=== PATIENT | male | born 1945 | race Caucasian/White ===

== ENCOUNTER 2018-11-15 09:21 | Day surgery (SDC) | payer MEDICARE, BC ==
[~2018-11-15 09:21] MED LIST: ASPI81CH; FA-80.8 MG; GLIM4; METF500; METTREX2.5; PRED1; Sudogest60 MG
--- NOTE | 2018-11-15 12:52 | NUR ---
TEMP 99.5-100.3 CALLED TO [facility]. PT HAS DC INSTRUCTIONS WITH HIM. WILL BE DC'D FROM RADIOLOGY IF US RESULTS INTERPRETED RIGHT AWAY OTHERWISE PT TO RETURN TO [facility] TO WAIT FOR RAD READ.
--- NOTE | 2018-11-15 12:58 | NUR ---
PT TO RAD FOR CT, NOT US.
--- NOTE | 2018-11-15 13:21 | NUR ---
PT IS DISCHARGED FROM RADIOLOGY AFTER CT SCAN COMPLETED.
== END 2018-11-15 22:41 | disposition home or self-care (01) ==
LOC: CT 09:21
DX: C64.1 Malignant neoplasm of right kidney, except renal pelvis (principal)
CPT/HCPCS: 50200; 77012; 88305; 88341; 88342

== ENCOUNTER 2018-11-17 10:41 | Inpatient (IN) | payer MEDICARE, BC ==
[~2018-11-17] VITALS: Ht 172.7 cm; Wt 79.0 kg
[2018-11-17 11:31] LABS: BASOPHILS ABSOLUTE AUTO 0.03 K/mm3 (0.00-0.23); BASOPHILS PERCENT AUTO 0 % (0-2); EOSINOPHILS PERCENT AUTO 0 % (0-6); Hematocrit 54.2 % (37.0-53.0); Hemoglobin 17.2 g/dL (13.5-17.5); IMMATURE GRAN ABSOLUTE AUTO 0.03 K/mm3 (0.00-0.10); IMMATURE GRAN PERCENT AUTO 0 % (0-1); LYMPHOCYTES ABSOLUTE AUTO 1.06 K/mm3 (0.84-5.20); LYMPHOCYTES PERCENT AUTO 14 % (21-46); MONOCYTES ABSOLUTE AUTO 0.76 K/mm3 (0.16-1.47); MONOCYTES PERCENT AUTO 10 % (4-13); Mean Corpuscular HGB 26.9 pg (26.0-34.0); Mean Corpuscular HGB Conc 31.7 g/dL (31.5-36.5); Mean Corpuscular Volume 85 fL (80-100); Mean Platelet Volume 9.2 fL (9.1-12.4); NEUTROPHILS ABSOLUTE AUTO 5.96 K/mm3 (1.96-9.15); NEUTROPHILS PERCENT AUTO 76 % (41-73); Platelet Count 211 K/mm3 (150-400); RDW Coefficient Variation 12.8 % (11.7-14.2); RDW Standard Deviation 39.8 fL (35.1-46.3); White Blood Cell Count 7.84 K/mm3 (4.00-11.30)
[2018-11-17 11:51] LABS: Alanine Aminotransfer (ALT/SGP 31 U/L (12-78); Albumin, Blood 2.9 g/dL (3.4-5.0); Albumin/Globulin Ratio 0.6 (0.8-1.8); Alk Phos 161 U/L (50-136); Anion Gap 8 mmol/L (6-16); Aspartate Aminotrans (AST/SGOT 40 U/L (12-37); Blood Urea Nitrogen 16 mg/dL (8-24); Bun/Creatinine Ratio 17.5 (12.0-20.0); CO2, Blood 27 mmol/L (21-32); Calcium, Blood 8.1 mg/dL (8.5-10.1); Chloride, Blood 95 mmol/L (98-108); Creatinine, Blood 0.92 mg/dL (0.60-1.20); Globulin, Blood 4.9 g/dL (2.2-4.0); Glomerular Filtration Rate >60 (60-); Glucose, Blood 151 mg/dL (70-99); Potassium, Blood 4.3 mmol/L (3.5-5.5); Sodium, Blood 130 mmol/L (136-145); Total Protein, Blood 7.8 g/dL (6.4-8.2)
[2018-11-17] MEDS ORDERED: SENN187 (15:01)
[2018-11-17] MEDS ORDERED: VOTRIENT200 MG PO (15:01)
[2018-11-17] MEDS ORDERED: METF500C PO (15:01)
[2018-11-17] MEDS ORDERED: OXYC10TA19 PO (15:02)
[2018-11-17] MEDS ORDERED: ZOLM5 PO (15:02)
[2018-11-17] MEDS ORDERED: MIRT15 PO (20:45)
--- NOTE | 2018-11-17 22:35 | NUR ---
ADMISSION: REPORT RECIEVED FROM ED RN. PT TO UNIT AT 2022. UPON ASSESSMENT PT IS IN NO VISABLE DISTRESS, A/O, SOMEWHAT SLEEPY BUT ANSWERS QUESTIONS AND ABLE TO HOLD CONVERSATION. VSS, PT REPORTS GENERALIZED WEAKNESS AND PAIN. WILL POSITION FOR COMFORT AND MED PER EMAR. ADMISSION ASSESSMENT AND CHARTING COMPLETED PT VERBALIZED UNDERSTANDING. BED ALARM ON FOR SAFETY. PT FAMILY MEMBERS CONTACT INFO ON BOARD.WILL CTM PT STATUS.
[2018-11-18 03:10] LABS: Source, Urine Clean Catch
[2018-11-18 03:11] LABS: Bilirubin, Urine Neg (Neg); Blood, Urine 3+ (Neg); Glucose Qualitative, Urine Neg (Neg); Ketones, Urine 3+ (Neg); Leukocyte Esterase, Urine 1+ (Neg); Nitrite, Urine Neg (Neg); Protein, Urine 1+ (Neg); Specific Gravity, Urine 1.015 (1.003-1.022); Urobilinogen, Urine 3+ (Normal)
[2018-11-18 03:16] LABS: Appearance, Urine Clear (Clear); Color, Urine Amber (P-Yellow)
[2018-11-18 03:42] LABS: Amorphous Light ({null, 0-Heavy}); Bacteria Few /hpf; Squamous Epithelial Cells Few /hpf (Few)
--- NOTE | 2018-11-18 06:23 | NUR ---
SUMMARY: PT HAS SLEPT OFF AND ON THIS SHIFT, ATTEMPTING TO MANAGE PAIN. PT REPORTS DILAUDID NO VERY EFFECTIVE. DR. WATSON NOTIFIED AND MORPHINE GIVEN. PT MOVED TO CHAIR THIS AM TO TRY AND BE MORE COMFORTABLE. PT REPORTS PAIN IN L SHOULDER AND GENERALIZED. VSS AND HAS VOIDED STANDING AT BEDSIDE WITH 2 ASSIST, HAS TROUBLE MOVING R LEG AND CANNOT MOVE L ARM WITHOUT EXTREME PAIN. PT A/0, FOLLOWING DIRECTIONS. BED ALARM/TAB ALARM ON FOR SAFETY. WILL CTM AND MANAGE PT PAIN. NO ACUTE CONCERNS AT THIS TIME.
--- NOTE | 2018-11-18 18:37 | NUR ---
SHIFT SUMMARY PT AXO, PLEASANT AND COOPERATIVE CARE THOUGH SLOW TO RESPOND AT TIMES. PT MEDICATED FOR PAIN PER EMAR. PT IS EXTREMELY PAINFUL WITH ANY MOVEMENT OF UPPER LEFT AND LOWER RIGHT EXTREMITY. THOUGH PT IS ABLE TO REST COMFORTABLY WHEN NOT MOVING. PT EXTREMELY PROTECTIVE OF AFFECTED EXTREMITIES. VSS. UP WITH 2 ASSIST AND FWW AND GB. FAMILY PRESENT THROUGHOUT THE SHIFT. HOME MEDICATION LABELED IN PHARMACY AND NOW IS IN LOCKED PT DRAWER. IV PATENT AND SALINE LOCKED.
--- NOTE | 2018-11-19 06:44 | NUR ---
SUMMARY: NO ACUTE CHANGE THIS SHIFT.VSS PT PAIN WELL MANAGED WITH SCHEDULED OXYCOTIN AND 2MG PO DILAUDID AT ABOUT 0100. PT ABLE TO SLEEP AND SEEMED MUCH MORE COMFORTABLE AND LESS PAINFULL THAN NIGHT OF 11/18. PT UP TO VOID WITH 2 ASSIST, NO SAFETY CONCERNS AT THIS TIME.
--- NOTE | 2018-11-19 11:45 | NUR ---
therapy: pt in room to eval and treat patient. pain at manageable level at this time per pt.
--- NOTE | 2018-11-19 18:46 | NUR ---
PT HAS BEEN STABLE THIS SHIFT. PT WORKED WELL WITH THERAPY AND HAS BEEN MOBILIZING OOB WITH 1 PERSON. PT PAIN CONTROL REGIMINE HAS BEEN REPORTED EFFECTIVE BY PATIENT, ALTHOUGH HE NEVER RATES HIS PAIN LOWER THAN 8/10. PT CONT TO HAVE DECREASED MOBILITY IN LEFT SHOULDER. PT USES LAUREN WALKER WELL. CONT BIOX ON FOR HIGH RISK PAIN. PT BRADYCARDIC AT TIMES IN THE HIGH 40'S-LOW 50'S, NON SYMPTOMATIC. P IRVIN DIET WELL. BLOOD SUGARS CONSISTENTLY UNDER 200, NO COVERAGE NEEDED. SOLUMEDROL CHANGED TO PREDNISONE. PLAN DC HOME WITHIN THE NEXT COUPLE OF DAYS PER HOSPITALIST. PT FAMILY AT BEDSIDE, ATTENTIVE. USES CALL LIGHT APPROPRIATELY NEEDED.
--- NOTE | 2018-11-20 07:34 | NUR ---
SUMMARY: NO CHANGE TONIGHT. PT CONTINUES TO BE BRADYCARDIC AND ASYMPTOMATIC. ALL OTHER VSS. A/O USING CALL LIGHT. PAIN IS UNDER CONTROL WITH SCHDULED OXYCOTIN AND PO MORPHINE FOR BREAK THROUGH. PT IS UP WITH 1 ASSIST. MOVING A LOT BETTER THAT HE WAS A ADMIT AND NOT WEAK. NO ACUTE SAFETY CONCERNS AT THIS TIME.
--- NOTE | 2018-11-20 09:35 | NUR ---
dr amin in to see pt.
--- NOTE | 2018-11-20 13:42 | NUR ---
pt resting in position of comfort. will cont to monitor.
--- NOTE | 2018-11-20 16:27 | NUR ---
CALLED DR BETH KIMBALL' OFFICE PER PT REQUEST REGARDING CONSULT DR KIMBALL' OFFICE STATED CONSULT NOT NEEDED, WILL SEE PT AT SCHEDULED APPOINTMENT ON .
--- NOTE | 2018-11-20 17:19 | NUR ---
SUMMARY NO ACUTE CHANGES T/O SHIFT. MEDICATED PER ORDERS FOR PAIN. PT RATED PAIN 7-8 T/O DAY. PROVIDED K PAD FOR COMFORT TO R HIP. PT REPORTS K PAD HAS PROVIDED SOME RELIEF. PT PLEASANT AND COOPERATIVE. SPOUSE AT BEDSIDE.
--- NOTE | 2018-11-21 05:29 | NUR ---
PT VSS T/O NIGHT. PT REP PAIN BETTER CONTROLLED W/CURRENT ORDERS. PT DID REQUIRE PO DILUADID APPX Q5HRS DURING NIGHT. PT HAD 1 BM THIS SHIFT. PT UP OOB W/LAUREN WALKER AND SBA, IRVIN ACTIVITY WELL, DOES NEED SOME ASSISTANCE LIFTING LEGS BACK INTO BED. PT REP HAVING SLEPT WELL DURING NIGHT, IS USING CALL LIGHT FOR ASSISTANCE, WILL CONT TO MONITOR UNTIL REP GIVEN TO ONCOMING RN.
[2018-11-21] MEDS ORDERED: DOCU100 PO (09:33)
[2018-11-21] MEDS ORDERED: TUMS300 MG PO (09:33)
[2018-11-21] MEDS ORDERED: SENN187 PO (09:33)
[2018-11-21] MEDS ORDERED: MIRALAX17 GM PO (09:34)
[2018-11-21] MEDS ORDERED: PANT20 PO (09:34)
[2018-11-21] MEDS ORDERED: HYDMOR2 PO (09:34)
[2018-11-21] MEDS ORDERED: OXYC30ER PO (09:35)
--- NOTE | 2018-11-21 10:54 | NUR ---
DISCHARGED REVIEWED DC PAPERWORK W/PT AND . VERBALIZED UNDERSTANDING. DC'D IV, CATHETER INTACT. PT LEFT UNIT IN WC, ACCOMPANIED BY WHO HAD POSSESSIONS AND DC PAPERWORK IN HAND.
== END 2018-11-21 11:00 | disposition home or self-care (01) | DRG 687 ==
LOC: ER 10:41 → MEDS 10:42 → SURS 20:20
PROVIDERS: Physician Assistant; ADMIT Internal Medicine
DX: C64.9 Malignant neoplasm of unspecified kidney, except renal pelvis (principal); C79.51 Secondary malignant neoplasm of bone; E87.1 Hypo-osmolality and hyponatremia; E87.8 Other disorders of electrolyte and fluid balance, not elsewhere classified; K21.9 Gastro-esophageal reflux disease without esophagitis; G43.909 Migraine, unspecified, not intractable, without status migrainosus; G44.89 Other headache syndrome; E11.9 Type 2 diabetes mellitus without complications; K59.00 Constipation, unspecified; Z79.84 Long term (current) use of oral hypoglycemic drugs; Z79.899 Other long term (current) drug therapy
CPT/HCPCS: 36415; 74022; 80053; 81001; 82947; 84550; 85025; 87086; 94762; 96361; 96372; 96374; 96375; 96376; 97116; 97162; 99284-25; G0378; J1170; J1650; J1885; J2270; J2920; J7030

== ENCOUNTER 2018-12-25 18:26 | Emergency (ER) | payer MEDICARE, BC ==
[~2018-12-25] VITALS: Ht 172.7 cm; Wt 74.8 kg
[~2018-12-25 18:26] MED LIST changes: +DOCU100 PO; +HYDMOR2 PO; +METF500C PO; +MIRALAX17 GM PO; +MIRT15 PO; +OXYC10TA19 PO; +OXYC30ER PO; +PANT20 PO; +SENN187; +SENN187 PO; +TUMS300 MG PO; +VOTRIENT200 MG PO; +ZOLM5 PO
[2018-12-25 20:31] LABS: Source, Urine Clean Catch
[2018-12-25 20:32] LABS: BASOPHILS ABSOLUTE AUTO 0.03 K/mm3 (0.00-0.23); BASOPHILS PERCENT AUTO 1 % (0-2); EOSINOPHILS ABSOLUTE AUTO 0.22 K/mm3 (0.00-0.68); EOSINOPHILS PERCENT AUTO 3 % (0-6); Hematocrit 53.3 % (37.0-53.0); Hemoglobin 16.9 g/dL (13.5-17.5); IMMATURE GRAN ABSOLUTE AUTO 0.03 K/mm3 (0.00-0.10); IMMATURE GRAN PERCENT AUTO 1 % (0-1); LYMPHOCYTES ABSOLUTE AUTO 1.57 K/mm3 (0.84-5.20); LYMPHOCYTES PERCENT AUTO 24 % (21-46); MONOCYTES ABSOLUTE AUTO 0.73 K/mm3 (0.16-1.47); MONOCYTES PERCENT AUTO 11 % (4-13); Mean Corpuscular HGB Conc 31.7 g/dL (31.5-36.5); Mean Corpuscular Volume 85 fL (80-100); Mean Platelet Volume 9.1 fL (9.1-12.4); NEUTROPHILS ABSOLUTE AUTO 4.06 K/mm3 (1.96-9.15); NEUTROPHILS PERCENT AUTO 61 % (41-73); Platelet Count 209 K/mm3 (150-400); RDW Coefficient Variation 18.9 % (11.7-14.2); RDW Standard Deviation 54.6 fL (35.1-46.3); Red Blood Cell Count 6.26 M/mm3 (4.30-5.90); White Blood Cell Count 6.64 K/mm3 (4.00-11.30)
[2018-12-25 20:33] LABS: Appearance, Urine Clear (Clear); Blood, Urine 3+ (Neg); Color, Urine Amber (P-Yellow); Glucose Qualitative, Urine Neg (Neg); Ketones, Urine Neg (Neg); Leukocyte Esterase, Urine 1+ (Neg); Nitrite, Urine Neg (Neg); Protein, Urine 2+ (Neg); Urobilinogen, Urine 3+ (Normal)
[2018-12-25 20:37] LABS: Bilirubin, Urine 1+ (Neg)
[2018-12-25 20:39] LABS: Bacteria Mod /hpf; Red Blood Cells, Urine 0-2 /hpf (0-2); Spermatozoa Rare /hpf; Squamous Epithelial Cells Not Seen /hpf (Few)
[2018-12-25] MEDS ORDERED: ASPI81CH PO (20:52)
[2018-12-25] MEDS ORDERED: Fentanyl1 EACH TD (20:54)
[2018-12-25 20:55] LABS: Alanine Aminotransfer (ALT/SGP 331 U/L (12-78); Albumin, Blood 2.9 g/dL (3.4-5.0); Albumin/Globulin Ratio 0.6 (0.8-1.8); Anion Gap 8 mmol/L (6-16); Aspartate Aminotrans (AST/SGOT 222 U/L (12-37); Bilirubin, Total 1.8 mg/dL (0.1-1.0); Blood Urea Nitrogen 15 mg/dL (8-24); Bun/Creatinine Ratio 16.3 (12.0-20.0); CO2, Blood 27 mmol/L (21-32); Calcium, Blood 8.9 mg/dL (8.5-10.1); Chloride, Blood 93 mmol/L (98-108); Creatinine, Blood 0.92 mg/dL (0.60-1.20); Globulin, Blood 5.2 g/dL (2.2-4.0); Glomerular Filtration Rate >60 (60-); Glucose, Blood 91 mg/dL (70-99); Potassium, Blood 4.6 mmol/L (3.5-5.5); Sodium, Blood 128 mmol/L (136-145); Total Protein, Blood 8.1 g/dL (6.4-8.2)
[2018-12-25] MEDS ORDERED: Flonase 0.05% N16 GM (20:55)
[2018-12-25] MEDS ORDERED: Prozac20 MG (20:55)
[2018-12-25 21:08] LABS: Alk Phos 1154 U/L (50-136)
[2018-12-25] MEDS ORDERED: Ativan0.5 MG PO (21:24)
== END 2018-12-25 22:10 | disposition home or self-care (01) ==
LOC: ER 18:26
PROVIDERS: Physician Assistant
DX: N13.30 Unspecified hydronephrosis (principal); C64.1 Malignant neoplasm of right kidney, except renal pelvis; C79.51 Secondary malignant neoplasm of bone; G47.00 Insomnia, unspecified; Z79.84 Long term (current) use of oral hypoglycemic drugs; Z79.899 Other long term (current) drug therapy; Z79.891 Long term (current) use of opiate analgesic; Z79.82 Long term (current) use of aspirin; Z87.891 Personal history of nicotine dependence
CPT/HCPCS: 36415; 72193; 74176; 80053; 81001; 83690; 85025; 87086; 99284-25; Q9967

== ENCOUNTER 2019-02-09 19:33 | Inpatient (IN) | payer MEDICARE, BC ==
[~2019-02-09] VITALS: Ht 172.7 cm; Wt 77.8 kg
[~2019-02-09 19:33] MED LIST changes: +ASPI81CH PO; +Ativan0.5 MG PO; +Fentanyl1 EACH TD; +Flonase 0.05% N16 GM; +Prozac20 MG
[2019-02-09 20:09] LABS: BASOPHILS ABSOLUTE AUTO 0.03 K/mm3 (0.00-0.23); BASOPHILS PERCENT AUTO 0 % (0-2); EOSINOPHILS ABSOLUTE AUTO 0.02 K/mm3 (0.00-0.68); EOSINOPHILS PERCENT AUTO 0 % (0-6); Hematocrit 41.7 % (37.0-53.0); Hemoglobin 13.6 g/dL (13.5-17.5); IMMATURE GRAN ABSOLUTE AUTO 0.02 K/mm3 (0.00-0.10); IMMATURE GRAN PERCENT AUTO 0 % (0-1); LYMPHOCYTES ABSOLUTE AUTO 1.52 K/mm3 (0.84-5.20); LYMPHOCYTES PERCENT AUTO 22 % (21-46); MONOCYTES PERCENT AUTO 13 % (4-13); Mean Corpuscular HGB 30.8 pg (26.0-34.0); Mean Corpuscular HGB Conc 32.6 g/dL (31.5-36.5); Mean Corpuscular Volume 94 fL (80-100); Mean Platelet Volume 8.9 fL (9.1-12.4); NEUTROPHILS ABSOLUTE AUTO 4.34 K/mm3 (1.96-9.15); NEUTROPHILS PERCENT AUTO 64 % (41-73); Platelet Count 220 K/mm3 (150-400); RDW Coefficient Variation 21.3 % (11.7-14.2); RDW Standard Deviation 71.9 fL (35.1-46.3); Red Blood Cell Count 4.42 M/mm3 (4.30-5.90); White Blood Cell Count 6.83 K/mm3 (4.00-11.30)
[2019-02-09 20:17] LABS: Alanine Aminotransfer (ALT/SGP 21 U/L (12-78); Albumin, Blood 2.7 g/dL (3.4-5.0); Albumin/Globulin Ratio 0.6 (0.8-1.8); Alk Phos 156 U/L (50-136); Anion Gap 7 mmol/L (6-16); Aspartate Aminotrans (AST/SGOT 22 U/L (12-37); Bilirubin, Total 1.4 mg/dL (0.1-1.0); Blood Urea Nitrogen 12 mg/dL (8-24); Bun/Creatinine Ratio 16.7 (12.0-20.0); CO2, Blood 27 mmol/L (21-32); Calcium, Blood 8.1 mg/dL (8.5-10.1); Chloride, Blood 99 mmol/L (98-108); Creatinine, Blood 0.72 mg/dL (0.60-1.20); Globulin, Blood 4.7 g/dL (2.2-4.0); Glomerular Filtration Rate >60 (60-); Glucose, Blood 150 mg/dL (70-99); Potassium, Blood 3.8 mmol/L (3.5-5.5); Sodium, Blood 133 mmol/L (136-145); Total Protein, Blood 7.4 g/dL (6.4-8.2)
[2019-02-09 21:58] LABS: Body Fluid Crystals NEG (NEGATIVE)
[2019-02-09 22:02] LABS: Glucose, Body Fluid 3 mg/dL; Protein, Body Fluid 4.4 g/dL
[2019-02-09 22:03] LABS: Source, Urine Clean Catch
[2019-02-09 22:18] LABS: Blood, Urine 1+ (Neg); Glucose Qualitative, Urine Neg (Neg); Ketones, Urine Neg (Neg); Leukocyte Esterase, Urine 1+ (Neg); Nitrite, Urine Neg (Neg); Protein, Urine 2+ (Neg); Urobilinogen, Urine 4+ (Normal)
[2019-02-09 22:18] LABS: WBC Count, Synovial Fluid 60630 /mm3 (0-180)
[2019-02-09 22:24] LABS: Appearance, Synovial Fluid Turbid (Clear); Color, Synovial Fluid Yellow (None-P Yel)
[2019-02-09 22:25] LABS: RBC Count, Synovial Fluid 116 /mm3 (0-0)
[2019-02-09 22:31] LABS: Lymphs, Synovial Fluid 2 % (0-15); Monocytes/Macrophages, Synovia 3 % (0-65); Neutrophils, Synovial Fluid 95 % (0-24)
[2019-02-09 22:38] LABS: Bilirubin, Urine 1+ (Neg)
[2019-02-09 22:39] LABS: Appearance, Urine Clear (Clear); Bacteria Few /hpf; Color, Urine Yellow (P-Yellow); Red Blood Cells, Urine 0-2 /hpf (0-2); Squamous Epithelial Cells Not Seen /hpf (Few); White Blood Cells, Urine 0-2 /hpf (0-5)
[2019-02-09 23:20] LABS: Influenza A Negative (NEGATIVE); Influenza B Negative (NEGATIVE)
[2019-02-10 04:16] LABS: BASOPHILS ABSOLUTE AUTO 0.01 K/mm3 (0.00-0.23); BASOPHILS PERCENT AUTO 0 % (0-2); EOSINOPHILS ABSOLUTE AUTO 0.01 K/mm3 (0.00-0.68); EOSINOPHILS PERCENT AUTO 0 % (0-6); Hematocrit 35.8 % (37.0-53.0); Hemoglobin 11.7 g/dL (13.5-17.5); IMMATURE GRAN ABSOLUTE AUTO 0.02 K/mm3 (0.00-0.10); IMMATURE GRAN PERCENT AUTO 0 % (0-1); LYMPHOCYTES ABSOLUTE AUTO 1.15 K/mm3 (0.84-5.20); LYMPHOCYTES PERCENT AUTO 19 % (21-46); MONOCYTES ABSOLUTE AUTO 0.94 K/mm3 (0.16-1.47); MONOCYTES PERCENT AUTO 15 % (4-13); Mean Corpuscular HGB 30.5 pg (26.0-34.0); Mean Corpuscular HGB Conc 32.7 g/dL (31.5-36.5); Mean Corpuscular Volume 93 fL (80-100); NEUTROPHILS ABSOLUTE AUTO 4.05 K/mm3 (1.96-9.15); NEUTROPHILS PERCENT AUTO 66 % (41-73); Platelet Count 179 K/mm3 (150-400); RDW Coefficient Variation 21.2 % (11.7-14.2); Red Blood Cell Count 3.84 M/mm3 (4.30-5.90); White Blood Cell Count 6.18 K/mm3 (4.00-11.30)
[2019-02-10 04:31] LABS: Anion Gap 8 mmol/L (6-16); Blood Urea Nitrogen 12 mg/dL (8-24); Bun/Creatinine Ratio 18.4 (12.0-20.0); CO2, Blood 24 mmol/L (21-32); Calcium, Blood 7.4 mg/dL (8.5-10.1); Chloride, Blood 102 mmol/L (98-108); Creatinine, Blood 0.65 mg/dL (0.60-1.20); Glomerular Filtration Rate >60 (60-); Glucose, Blood 123 mg/dL (70-99); Magnesium, Blood 1.8 mg/dL (1.6-2.4); Potassium, Blood 3.8 mmol/L (3.5-5.5); Sodium, Blood 134 mmol/L (136-145)
[2019-02-10 04:36] LABS: International Normalized Ratio 1.22; Prothrombin Time Results 12.7 Sec (9.7-11.5)
--- NOTE | 2019-02-10 07:09 | NUR ---
SHIFT SUMMARY PT RESTED WELL THIS AM WITH X1 EPISODE OF AMS UPON AWAKENING. AAOX4/SOME CONFUSION AT TIMES. RIGHT KNEE WITH INCREASED WARMTH + SWELLING NOTED, ASPIRATED IN ER. PAIN CONTROLLED WITH 25mcg FENTANYL X2 THIS AM. NO NAUSEA/EMESIS. IVF PER ORDERS. PT ORIENTED TO CALL LIGHT USE + DEMONSTRATED USE. BED ALARM ON FOR SAFETY.
[2019-02-10] MEDS ORDERED: GAVILAX17 GM PO (10:38)
[2019-02-10] MEDS ORDERED: HYDMOR4 PO (10:40)
[2019-02-10] MEDS ORDERED: DOXE50 PO (10:42)
--- NOTE | 2019-02-10 16:35 | NUR ---
SHIFT SUMMARY: PT IS MORE ALERT THIS AFTERNOON THAN THIS MORNING. HE IS A&OX4. VSS. HE DECLINED INSULIN COVERAGE FOR LUNCH D/T HAVING A SNACK JUST PRIOR TO CBG LEVEL CHECK. TOLERATING PO INTAKE. DENIES N/V. DENIES THE NEED FOR PAIN MEDS AT THIS TIME. HE AND REPORT TRYING TO REFRAIN FROM NARCOTIC USE. REPOSITIONED IN BED FREQUENTLY. HIS IS ABLE TO MAKE NEEDS KNOWN. BED IN LOWEST POSITION WITH ALARM ON. CALL LIGHT IN REACH. WILL CTM MONITOR UNTIL REPORT GIVEN TO NEXT SHIFT RN. HOME DOSE OF VOTRIENT IS 3 200 MG TABS DAILY AT 1530. DOSE CONFIRMEND WITH DR. BETH KIMBALL. PHARMACY TO [facility] FOR INPT USE.
--- NOTE | 2019-02-10 22:23 | NUR ---
PROVIDER COMMUNICATION [id number] JULIA NOTIFIED PT AND FAMILY WOULD LIKE TO CHANGE REMERON TO HOME MEDICATION, DOXEPIN 1-2 25 MG. ORDER TO DC REMERON AND ORDER TO ENTER DOXEPIN TAKEN AT HOME GIVEN.
--- NOTE | 2019-02-11 07:56 | NUR ---
SHIFT SUMMARY PT A&O X4 T/O SHIFT. PAIN IN R KNEE MANAGED PER EMAR. PT UP, STAND AT BEDSIDE WITH ONE ASSIST X1 TO VOID. IV GTT PER EMAR. PT NPO POST MIDNIGHT. SCD'S TO BLE'S; EDUCATION ON DVT RISK AND PREVENTION TO PT AND DAUGHTER. TELEMETRY IN PLACE; SR PER DEVELOPMENT SCIENTIST. PT DENIES CP. CALL LIGHT IN REACH. REPORT GIVEN TO DAY SHIFT RN.
[2019-02-11 08:49] LABS: BASOPHILS ABSOLUTE AUTO 0.02 K/mm3 (0.00-0.23); BASOPHILS PERCENT AUTO 0 % (0-2); EOSINOPHILS ABSOLUTE AUTO 0.09 K/mm3 (0.00-0.68); EOSINOPHILS PERCENT AUTO 2 % (0-6); Hematocrit 32.7 % (37.0-53.0); Hemoglobin 10.6 g/dL (13.5-17.5); IMMATURE GRAN PERCENT AUTO 0 % (0-1); LYMPHOCYTES ABSOLUTE AUTO 0.95 K/mm3 (0.84-5.20); LYMPHOCYTES PERCENT AUTO 20 % (21-46); MONOCYTES ABSOLUTE AUTO 0.39 K/mm3 (0.16-1.47); MONOCYTES PERCENT AUTO 8 % (4-13); Mean Corpuscular HGB 30.5 pg (26.0-34.0); Mean Corpuscular HGB Conc 32.4 g/dL (31.5-36.5); Mean Corpuscular Volume 94 fL (80-100); Mean Platelet Volume 9.1 fL (9.1-12.4); NEUTROPHILS PERCENT AUTO 69 % (41-73); Platelet Count 175 K/mm3 (150-400); RDW Coefficient Variation 21.1 % (11.7-14.2); RDW Standard Deviation 70.8 fL (35.1-46.3); Red Blood Cell Count 3.48 M/mm3 (4.30-5.90); White Blood Cell Count 4.65 K/mm3 (4.00-11.30)
[2019-02-11 09:04] LABS: Albumin, Blood 2.1 g/dL (3.4-5.0); Anion Gap 6 mmol/L (6-16); Blood Urea Nitrogen 11 mg/dL (8-24); Bun/Creatinine Ratio 16.8 (12.0-20.0); CO2, Blood 26 mmol/L (21-32); Calcium, Blood 7.5 mg/dL (8.5-10.1); Chloride, Blood 107 mmol/L (98-108); Creatinine, Blood 0.65 mg/dL (0.60-1.20); Glomerular Filtration Rate >60 (60-); Glucose, Blood 92 mg/dL (70-99); Phosphorus, Blood 1.9 mg/dL (2.5-4.9); Potassium, Blood 3.6 mmol/L (3.5-5.5); Sodium, Blood 139 mmol/L (136-145)
[2019-02-11 09:08] LABS: Vancomycin, Trough 13.2 ug/mL (5.0-10.0)
--- NOTE | 2019-02-11 11:00 | NUR ---
PT TO IMAGING VIA [employer].
--- NOTE | 2019-02-11 13:02 | NUR ---
AWARE OF DELAYED ANTIBIOTICS DUE TO LOSS OF IV. NEW IV SITE OBTAINED, ABX RESUMED.
--- NOTE | 2019-02-11 13:10 | NUR ---
BABS IN PHARMACY NOTIFIED IN DELAY OF VANCO. HE REPORTS HE WILL REVIEW WHEN VANCO T NEEDS ORDERED AND ADJUST ACCORDINGLY.
--- NOTE | 2019-02-11 20:23 | NUR ---
SHIFT SUMMARY: PT IS NOW ABLE TO LIFT HIS R LEG A COUPLE INCHES OFF THE BED, YESTERDAY HE NEEDED COMPLETE ASSISTANCE TO MOVE HIS RLE. PAIN HAS BEEN WELL CONTROLLED WITH 2 MG OF PO DILAUDID. NO CARDIAC EVENTS NOTED. TELE WAS D/C'D. NO OTHER ACUTE CHANGES NOTED. REPORT GIVEN TO DORCAS TADEO.
[2019-02-12 06:33] LABS: Albumin, Blood 2.2 g/dL (3.4-5.0); Anion Gap 6 mmol/L (6-16); Blood Urea Nitrogen 11 mg/dL (8-24); Bun/Creatinine Ratio 17.7 (12.0-20.0); CO2, Blood 26 mmol/L (21-32); Chloride, Blood 104 mmol/L (98-108); Creatinine, Blood 0.62 mg/dL (0.60-1.20); Glomerular Filtration Rate >60 (60-); Glucose, Blood 95 mg/dL (70-99); Phosphorus, Blood 2.8 mg/dL (2.5-4.9); Potassium, Blood 3.9 mmol/L (3.5-5.5); Sodium, Blood 136 mmol/L (136-145)
--- NOTE | 2019-02-12 07:28 | NUR ---
SHIFT SUMMARY PT A&O X4 T/O SHIFT. SWELLING TO R KNEE/RLE; PAIN MANAGED PER EMAR; ICE TO R KNEE PT TOLERATED; RLE ELEVATED PT TOLERATED. PT FREQUENTLY CHANGED POSITIONS IN BED; ASSISTED PRN. PT SAT AT BEDSIDE WITH ASSIST TO VOID. SOMETIMES FORGETFUL OF INFORMATION. CALL LIGHT IN REACH; PT DEMONSTRATES USE. BED ALARM AND SIDE RAILS FOR SAFETY. REPORT GIVEN TO DAY SHIFT RN.
--- NOTE | 2019-02-12 19:51 | NUR ---
SHIFT SUMMARY PAIN HAS BEEN MANAGED WITH IV AND PO PAIN MEDICATION. PT HAD INCREASED PAIN TODAY AFTER THERAPY. PT IS A 1 ASSIST WHEN OOB. FAMILY HAS BEEN AT THE BEDSIDE. VSS. REPORT GIVEN TO DORCAS TADEO.
--- NOTE | 2019-02-13 05:52 | NUR ---
SUMMARY PT REQUESTED SOMETHING ELSE FOR SLEEP TONIGHT CURRENT MEDS REPORTED INEFFECTIVE LAST NIGHT AND EARLY THIS SHIFT.I CALLED DR FRAN DAWKINS FOR HOSPITALIST AND SHE WROTE ORDER FOR RESTORIL WHICH PT TOOK AND WAS ABLE TO SLEEP AFTER. WHEN PT WOKE FOR VOIDING, HE VERB WAS PLEASED WITH BEING ABLE TO SLEEP.PAIN REQUIRING SUBLIMAZE FOR BREAKTHROUGH.
--- NOTE | 2019-02-13 14:29 | NUR ---
Met pt sitting up in a chair andf talking with the in the room, Pt. rports doing much better , encouraged . offered spiritual support and prayers
--- NOTE | 2019-02-13 17:29 | NUR ---
SHIFT SUMMARY PAIN HAS BEEN MANAGED TODAY WITH ULTRAM AND IV FENTANYL; PT REPORTS HE HAS HAD BETTER PAIN CONTROL TODAY. PT IS A 1 ASSIST WHEN OOB. FAMILY IS AT THE BEDSIDE. VSS. WILL MONITOR UNTIL REPORT TO ONCOMING RN.
--- NOTE | 2019-02-13 19:27 | NUR ---
DIARRHEA NURSE PRACTITIONER MADAN NOTIFIED OF DIARRHEA. BOWEL CARE STOPPED AT THIS TIME. IMODIUM TO BE STARTED. MONITOR FOR CONTINUED STOOLS.
--- NOTE | 2019-02-14 06:39 | NUR ---
LYING ON RIGHT SIDE WITH EYES CLOSED. MEDICATED X1 FOR BREAKTHROUGH PAIN. REPOSITIONS SELF FOR COMFORT. DENIES FURTHER NEEDS AT THIS TIME. SAFETY MEASURES IN PLACE. WILL GIVE HAND OFF TO ONCOMING SHIFT USING SBAR,
[2019-02-14] MEDS ORDERED: TRAM50 PO (11:07)
[2019-02-14] MEDS ORDERED: COLCRYS0.6 MG PO (11:10)
--- NOTE | 2019-02-14 13:28 | NUR ---
DISCHARGE: PT EATING AND DRINKING, VOIDING. UP WITH WALKER WITH STEADY GAIT. PT/FAMILY REPORTS UNDERSTANDING OF DISCHARGE INSTRUCTIONS. IV OUT WNL. BELONGINGS AND SCRIPT SENT WITH PT. OTHER MED CALLED TO PHARMACY OF PT'S CHOICE. SEAMLESS HOSIERY KNITTER ASSISTED WITH PT'S DISCHARGE.
--- NOTE | 2019-02-14 13:30 | NUR ---
Met ptmin a chair relaxed and waiting for discharge, spouse in the room, pt is doing very well and is happy to go home ,encour Met pt. siotting in a chair , relaxed, waiting for dischaarge, the spouse is in the room,pt. reports to be doing well, encouraged pt. and offered prayers
== END 2019-02-14 13:28 | disposition home health service (06) | DRG 553 ==
LOC: ER 19:33 → SURS 23:49 → UNDODEPER 02-10 05:06 → SURS 02-14 13:28
PROVIDERS: Emergency Medicine; Internal Medicine; Nurse Practitioner Acute Care; ADMIT Internal Medicine
PROC: 0S9C3ZX Drainage of Right Knee Joint, Percutaneous Approach, Diagnostic (ICD-10-PCS; principal; 2019-02-09)
DX: M11.261 Other chondrocalcinosis, right knee (principal); G92 Toxic encephalopathy; C79.51 Secondary malignant neoplasm of bone; C64.9 Malignant neoplasm of unspecified kidney, except renal pelvis; F11.20 Opioid dependence, uncomplicated; Z87.891 Personal history of nicotine dependence; Z79.82 Long term (current) use of aspirin; Z79.891 Long term (current) use of opiate analgesic; Z79.84 Long term (current) use of oral hypoglycemic drugs; G43.909 Migraine, unspecified, not intractable, without status migrainosus; Z92.21 Personal history of antineoplastic chemotherapy; E11.65 Type 2 diabetes mellitus with hyperglycemia; G89.3 Neoplasm related pain (acute) (chronic)
CPT/HCPCS: 20610; 36415; 71045; 72170; 73552; 73562-RT; 80048; 80053; 80069; 80202; 81001; 82945; 82947; 83605; 83735; 84157; 85025; 85610; 85651; 86140; 87040; 87070; 87075; 87086; 87205; 87804; 89051; 89060; 93005; 93010; 96365-59; 96367-59; 96375-59; 97110; 97116; 97162; 97530; 99285-25; J0692; J1170; J2405; J2543; J3010; J3370; J7030; J7050; J7060

== ENCOUNTER 2019-03-25 13:03 | Inpatient (IN) | payer MEDICARE, BC ==
[~2019-03-25] VITALS: Ht 172.7 cm; Wt 78.0 kg
[~2019-03-25 13:03] MED LIST changes: +COLCRYS0.6 MG PO; -DOCU100 PO; +GAVILAX17 GM PO; +HYDMOR4 PO; +TRAM50 PO
[2019-03-25 14:31] LABS: BASOPHILS ABSOLUTE AUTO 0.02 K/mm3 (0.00-0.23); BASOPHILS PERCENT AUTO 0 % (0-2); EOSINOPHILS ABSOLUTE AUTO 0.52 K/mm3 (0.00-0.68); EOSINOPHILS PERCENT AUTO 11 % (0-6); Hematocrit 39.5 % (37.0-53.0); Hemoglobin 12.9 g/dL (13.5-17.5); IMMATURE GRAN ABSOLUTE AUTO 0.01 K/mm3 (0.00-0.10); IMMATURE GRAN PERCENT AUTO 0 % (0-1); LYMPHOCYTES ABSOLUTE AUTO 1.22 K/mm3 (0.84-5.20); LYMPHOCYTES PERCENT AUTO 26 % (21-46); MONOCYTES PERCENT AUTO 9 % (4-13); Mean Corpuscular HGB 33.2 pg (26.0-34.0); Mean Corpuscular HGB Conc 32.7 g/dL (31.5-36.5); Mean Corpuscular Volume 102 fL (80-100); Mean Platelet Volume 9.6 fL (9.1-12.4); NEUTROPHILS ABSOLUTE AUTO 2.56 K/mm3 (1.96-9.15); NEUTROPHILS PERCENT AUTO 54 % (41-73); Platelet Count 174 K/mm3 (150-400); RDW Coefficient Variation 13.2 % (11.7-14.2); RDW Standard Deviation 49.8 fL (35.1-46.3); Red Blood Cell Count 3.89 M/mm3 (4.30-5.90); White Blood Cell Count 4.73 K/mm3 (4.00-11.30)
[2019-03-25 14:47] LABS: Alanine Aminotransfer (ALT/SGP 19 U/L (12-78); Albumin/Globulin Ratio 0.8 (0.8-1.8); Alk Phos 101 U/L (50-136); Anion Gap 4 mmol/L (6-16); Aspartate Aminotrans (AST/SGOT 24 U/L (12-37); Bilirubin, Total 0.6 mg/dL (0.1-1.0); Blood Urea Nitrogen 14 mg/dL (8-24); Bun/Creatinine Ratio 19.1 (12.0-20.0); CO2, Blood 31 mmol/L (21-32); Calcium, Blood 8.8 mg/dL (8.5-10.1); Chloride, Blood 102 mmol/L (98-108); Creatinine, Blood 0.73 mg/dL (0.60-1.20); Globulin, Blood 3.8 g/dL (2.2-4.0); Glomerular Filtration Rate >60 (60-); Glucose, Blood 137 mg/dL (70-99); Sodium, Blood 137 mmol/L (136-145); Total Protein, Blood 6.8 g/dL (6.4-8.2)
[2019-03-25] MEDS ORDERED: Morphine Sulfat15 MG PO (16:44)
[2019-03-25] MEDS ORDERED: AMLO5 PO (19:27)
[2019-03-25] MEDS ORDERED: Fentanyl1 EACH TD (19:28)
[2019-03-25] MEDS ORDERED: DOCU100 PO (19:42)
[2019-03-25] MEDS ORDERED: DOXE25 PO (19:43)
--- NOTE | 2019-03-26 06:02 | NUR ---
SHIFT SUMMARY PT NEW ADMIT THIS SHIFT. AAOX4. NPO THIS AM. ORIENTED TO ROOM + CALL LIGHT USE. DR ALVARADO IN TO SEE PT YESTARDAY EVENING WITH NEWS OF POSSIBLE TRANSFER TO [facility] FOR SURGERY. PT BEDREST, TURN Q2H WITH MINIMAL ASSISTANCE. PAIN CONTROLLED WITH 1MG IV DILAUDID X2 THIS SHIFT. PT RESTING WELL THIS AM. CALL LIGHT IN REACH + BED ALARM FOR SAFETY.
--- NOTE | 2019-03-26 15:25 | NUR ---
ASSESSMENT PT WAS ASSESSED THIS MORINING BY THIS RN AND INDY STUDENT NURSE. SHIFT ASSESSMENT DOCUMENTED BY INDY IS WAS REVIEWED AND APPEARS ACCURATE AND IN LINE WITH ASSESSMENT PERFORMED BY THIS RN. REDDENED AREA WAS NOTICED ON COCCYX. WILL CONTINUE TO MONITOR.
--- NOTE | 2019-03-26 17:20 | NUR ---
SHIFT SUMMARY PT HAS R ACETABULAR FX, NWB ON R LEG, REGULAR DIET, USES URINAL, CALLS APPROPRIATELY, TRIED TO GET OUT OF BED EALIER THIS SHIFT UNASSISTED, PT DID NOT HAVE A FALL TO PRECIPITATE FRACTURE, IV 20G R AC, BENADRYL CREAM QID PRN TO CONTROL ITCHING ON BACK, WORKING WITH [facility] FOR POSSIBLE TRANSFER FOR SURGERY. PAIN IS CONTROLLED WITH DILAUDED, MORPHINE, AND TYLENOL PER EMAR.
--- NOTE | 2019-03-26 18:48 | NUR ---
PT ARRIVES ON FLOOR APPROXIMATELY 182
--- NOTE | 2019-03-26 18:49 | NUR ---
SHIFT SUMMARY PAIN HAS BEEN MANAGED WITH IV AND PO PAIN MEDICATION THIS SHIFT. AWAITING CALL BACK FROM [facility] TO DETERMINE IF PT WILL TRANSFER FOR SURGERY. FAMILY HAS BEEN AT THE BEDSIDE THIS SHIFT. PT IS ABLE TO REPOSITION WITH MINIMAL ASSISTANCE IN BED. VSS. WILL MONITOR UNTIL REPORT TO ONCOMING RN.
[2019-03-27 04:52] LABS: BASOPHILS ABSOLUTE AUTO 0.02 K/mm3 (0.00-0.23); BASOPHILS PERCENT AUTO 0 % (0-2); EOSINOPHILS ABSOLUTE AUTO 0.68 K/mm3 (0.00-0.68); EOSINOPHILS PERCENT AUTO 14 % (0-6); Hematocrit 36.8 % (37.0-53.0); Hemoglobin 12.2 g/dL (13.5-17.5); IMMATURE GRAN ABSOLUTE AUTO 0.02 K/mm3 (0.00-0.10); IMMATURE GRAN PERCENT AUTO 0 % (0-1); LYMPHOCYTES ABSOLUTE AUTO 1.56 K/mm3 (0.84-5.20); LYMPHOCYTES PERCENT AUTO 32 % (21-46); MONOCYTES ABSOLUTE AUTO 0.46 K/mm3 (0.16-1.47); MONOCYTES PERCENT AUTO 9 % (4-13); Mean Corpuscular HGB 32.7 pg (26.0-34.0); Mean Corpuscular HGB Conc 33.2 g/dL (31.5-36.5); Mean Platelet Volume 9.3 fL (9.1-12.4); NEUTROPHILS ABSOLUTE AUTO 2.17 K/mm3 (1.96-9.15); NEUTROPHILS PERCENT AUTO 44 % (41-73); Platelet Count 168 K/mm3 (150-400); RDW Coefficient Variation 12.8 % (11.7-14.2); RDW Standard Deviation 46.6 fL (35.1-46.3); Red Blood Cell Count 3.73 M/mm3 (4.30-5.90); White Blood Cell Count 4.91 K/mm3 (4.00-11.30)
[2019-03-27 04:58] LABS: Mean Corpuscular Volume 99 fL (80-100)
[2019-03-27 05:08] LABS: Anion Gap 6 mmol/L (6-16); Blood Urea Nitrogen 17 mg/dL (8-24); CO2, Blood 31 mmol/L (21-32); Calcium, Blood 8.4 mg/dL (8.5-10.1); Chloride, Blood 101 mmol/L (98-108); Creatinine, Blood 0.85 mg/dL (0.60-1.20); Glomerular Filtration Rate >60 (60-); Glucose, Blood 95 mg/dL (70-99); Potassium, Blood 4.2 mmol/L (3.5-5.5); Sodium, Blood 138 mmol/L (136-145)
--- NOTE | 2019-03-27 06:38 | NUR ---
SUMMARY PT RETURNED FORM COMPLETED CT SCAN. TOLERATED WELL PT RECENTLY RECEIVED DILAUDID FOR PAIN.PT VOID PRIOR TO TRAVEL TO CT.
--- NOTE | 2019-03-27 11:42 | NUR ---
SHIFT ASSESSMENT PT ASSESSED BY THIS RN. SHIFT ASSESSMENT DOCUMENTATION BY INDY STUDENT NURSE, THIS RN AGREES WITH DOCUMANTATION BY THIS NURSE. PT HAS A REDDENED AREA ON HIS SACRUM WITH A ALLEVYN PRESSURE PREVENTION DRESSING IN PLACE.
--- NOTE | 2019-03-27 18:01 | NUR ---
SHIFT ASSESSMENT PT ADMITTED FOR ACETABULAR FX. SURGERY HAS BEEN CANCELLED PER DR. HANDLEY'S ORDERS. PT CAN STAND/PIVOT TO USE COMMODE. PT MAY ALSO USE URINAL. PT HAS RENAL CARCINOMA WITH METS TO BONE. REGULAR DIET.
--- NOTE | 2019-03-27 18:33 | NUR ---
SHIFT SUMMARY PAIN HAS BEEN MANAGED WITH MS CONTIN AND DILAUDID THIS SHIFT. PT REPORTS HIS PAIN HAS BEEN BETTER MANAGED TODAY. PT HAS BEEN ABLE TO REPOSITION HIMSELF IN BED AND SIT AT THE EOB INDEPENDENTLY. PT WORKED WITH THERAPY TODAY, HE IS A 1 ASSIST TO STAND AND PIVOT TO THE CHAIR. PT IS NWB ON HIS RLE. PER DR. HANDLEY PT IS NON-SURGICAL. WILL PLACE PALLIATIVE CARE ORDER. VSS. WILL MONITOR UNTIL REPORT TO ONCOMING RN.
--- NOTE | 2019-03-27 18:41 | NUR ---
PALLIATIVE CARE PALLIATIVE CARE CONSULT CALLED TO LAURO GRAYSON RN.
--- NOTE | 2019-03-27 19:10 | NUR ---
recvd report from previous shift CARLYLE Smith and student RN, pt sitting on commode, call light within reach
--- NOTE | 2019-03-27 19:43 | NUR ---
pt meeting with Dr. Hunt. Brief visit after for symptom review and supportive care. Pt denies headache very anious about converation with physician. Want family to go home and rest. Offered to come back later but he wanted to talk but then felt it was to much. supportive listening with family. Review with symptoms and needs. will follow up with dr hunt plan.
--- NOTE | 2019-03-28 02:45 | NUR ---
PT AWOKE CONFUSED, RETRIEVED HIS WALKER AND WALKED INTO THE HALLWAY, ASKED THE RN "WHERE AM I?". THIS RN AND CIRCULAR KNITTER HELPER WHEELED PT BACK TO ROOM IN WHEELCHAIR, ASSISTED PT TO USE URINAL, ASSISTED PT TO CALL HIS , REORIENTED PT TO ROOM. PT APPEARS TO BE IN SOME DISTRESS, CONCERNED ABOUT HIS CONFUSED STATE. THIS RN SPOKE WITH PT RE: REASON FOR HOSPITAL STAY, HIS DIAGNOSIS OF CANCER, WHICH HE STATED HE HAD, HIS AND SON'S SAFETY WHICH HE QUESTIONED. THIS RN SAT WITH PT FOR 15 MIN TO REORIENT AND COMFORT. BED ALARM ON
--- NOTE | 2019-03-28 07:29 | NUR ---
shift summary: vss, no acute changes. pt tolerated PO intake with no n/v, urine output >500 ml this shift using urinal. pt a/o x 4 at start of shift until falling asleep at approx 2200. pt awoke at approx 0200, confused. see RN note. at 0600 pt is a/o x 4 again, states he "must have had a really bad dream". pt medicated per mar x 1 this shift with adequate pain control per pt.
--- NOTE | 2019-03-28 12:06 | NUR ---
Pt. is in bed and is doing much better encouraged him and prayeds for him
--- NOTE | 2019-03-28 14:00 | NUR ---
Met with pt and as planned. s/s assessment done. Pt is experiencing moderate to severe pain up to two hours prior to dosing of MS IR 15 mg PO q6h prn. He has a duragesic patch 25mcg q 72 hrs also. He is tearful at times and expressed frustratration as he started to sip coffee and then remembered the intake restrictions surrounding his oral chemo agent and dosing. Reported pain and discussed options with Dr. New orders entered per Dr for increase in frequency of breakthru pain rx to q4hrs and increase in duragesic patch dosing. Plan made with pt to bring him beverage of choice at 1645 when he is able to have po intake again. Spent time with pt/ while multiple family members/visitors were out of the room discussing his advanced care and code status wishes, answering questions and educating on AD and POLST form. Pt would like to be a DNR and does not want artificial feeding by tube. He would like to continue with limited treatment options as described on the POLST form. He became tearful again and asked if we could continue the conversation later. I encouraged them both to allow their emotions to be expressed and their fears/concerns and questions discussed. Pt indicated he wanted to continue the conversation after a pause to allow him to experience the strong emotions he was feeling. He indicated he would like to complete the POLST, which we did. Dr's signature obtained and copy of completed POLST faxed to medical records and placed on chart. Original to be given to . Discussed pt's noted growing anxiety with also. Plan is for probable d/c home tomorrow with HH and OP f/u with Dr Hunt to explore options for further palliative tx of cancer. Will alert CM to dc planning needs. I did not assess for equipment needs at home. Will plan for PC to reassess for pain and s/s management tomorrow before dc.
--- NOTE | 2019-03-28 18:18 | NUR ---
SHIFT SUMMARY PT A&OX4, VSS, NONSURGICAL R HIP FX, PLAN IS FOR DC TOMORROW. CODE STATUS ADDRESSED WITH PALLIATIVE CARE, NOW DNR, PURPLE BAND ON R WRIST. PAIN MANAGED ADDRESSED TODAY: 50 MG FENT PATCH ON L CHEST AND 15 MG MORPHINE Q4; PT EDUCATED TO REPOSITION TO ASSIST WITH PAIN MANAGEMT. UP TO CHAIR T/O SHIFT. AMB W/FWW & GB, NWB, TO CHAIR/BRP/BED. IRVIN PO, DENIES N&V. VOIDING WELL, USES URINAL; BM TODAY. AT BEDSIDE. WCTM & TX PER EMAR UNTIL REPORT GIVEN TO ONCOMING NOC RN.
--- NOTE | 2019-03-29 04:38 | NUR ---
SUMMARY: NO ACUTE CHANGE TONIGHT. VSS, ABLE TO SLEEP. GIVEN PO MORPHINE X1. PT ABLE TO REPOSITION SELF IN BED. USING CALL LIGHT, NO CONFUSION TONIGHT, BED ALARM ON FOR SAFETY. WILL CTM AND REPORT TO DAY RN
--- NOTE | 2019-03-29 11:26 | NUR ---
Met. pt. sitting in a chair and talking with the in the room ,pr. reports doing well and may go home today or [place], encouraged pt and offered prayers.
[2019-03-29] MEDS ORDERED: FENT50TP TOP (12:41)
[2019-03-29] MEDS ORDERED: COLCRYS0.6 MG PO (12:45)
[2019-03-29] MEDS ORDERED: Benadryl Itch28.3 GM (12:56)
[2019-03-29] MEDS ORDERED: SENN187 PO (12:56)
--- NOTE | 2019-03-29 12:56 | NUR ---
Pt visit this afternoon. Pt reports 11/23 pain and is anticipating discharge today. Pt reports current regimen is managing pain and has no concerns. Spoke with Pt's nurse Coleen and she is currently working on discharge orders. Coleen reports no concerns at this time.
--- NOTE | 2019-03-29 15:46 | NUR ---
SHIFT SUMMARY PT A&OX4, VSS, LEFT FLOOR VIA WC WITH NURSE, WITH ALL PERSONAL POSSESSIONS, TO GO HOME WITH , INCLUDING DISCHARGE PACKET AND 2 NARC SCRIPTS: MORPHINE AND FENTANYL. DISCHARGE INSTRUCTIONS PROVIDED. PT AND REP UNDERSTANDING THOSE INSTRUCTIONS INCLUDING FU WITH PCP IN 3 DAYS, FENT 50 MCG PATCHES X3 AND MORPHINE 15 MG Q4 TO BE REFILLED BY PCP AND FU WITH ONCOLOGY. IV DC'D.
== END 2019-03-29 14:52 | disposition home or self-care (01) | DRG 543 ==
LOC: ER 13:03 → SURS 20:02
PROVIDERS: Family Medicine; Physician Assistant; ADMIT Internal Medicine
DX: M84.551A Pathological fracture in neoplastic disease, right femur, initial encounter for fracture (principal); C64.1 Malignant neoplasm of right kidney, except renal pelvis; C79.51 Secondary malignant neoplasm of bone; F11.20 Opioid dependence, uncomplicated; E11.9 Type 2 diabetes mellitus without complications; Z87.891 Personal history of nicotine dependence; K21.9 Gastro-esophageal reflux disease without esophagitis; M84.550A Pathological fracture in neoplastic disease, pelvis, initial encounter for fracture; M11.261 Other chondrocalcinosis, right knee; Z66 Do not resuscitate; G43.909 Migraine, unspecified, not intractable, without status migrainosus; G89.3 Neoplasm related pain (acute) (chronic)
CPT/HCPCS: 36415; 73552; 73562-RT; 73700; 74177; 80048; 80053; 82947; 83036; 85025; 96374; 97110; 97116; 97162; 97166; 97530; 97535; 99285-25; J1170; J1644; Q0163; Q9967

== ENCOUNTER 2019-08-12 11:42 | Inpatient (IN) | payer MEDICARE, BC ==
[~2019-08-12] VITALS: Ht 172.7 cm; Wt 82.2 kg
[~2019-08-12 11:42] MED LIST changes: +AMLO5 PO; +Benadryl Itch28.3 GM; +DOXE10 PO; +FENT50TP TOP; +GLIM2 PO; +Kristalose20 GM PO; +METF500 PO; +Morphine Sulfat15 MG PO; +Percocet 5-3251 EACH PO
[2019-08-12 13:43] LABS: BASOPHILS ABSOLUTE AUTO 0.06 K/mm3 (0.00-0.23); BASOPHILS PERCENT AUTO 1 % (0-2); EOSINOPHILS ABSOLUTE AUTO 0.14 K/mm3 (0.00-0.68); EOSINOPHILS PERCENT AUTO 2 % (0-6); Hematocrit 35.6 % (37.0-53.0); Hemoglobin 11.3 g/dL (13.5-17.5); IMMATURE GRAN ABSOLUTE AUTO 0.48 K/mm3 (0.00-0.10); IMMATURE GRAN PERCENT AUTO 6 % (0-1); LYMPHOCYTES ABSOLUTE AUTO 1.27 K/mm3 (0.84-5.20); LYMPHOCYTES PERCENT AUTO 16 % (21-46); MONOCYTES ABSOLUTE AUTO 0.71 K/mm3 (0.16-1.47); MONOCYTES PERCENT AUTO 9 % (4-13); Mean Corpuscular HGB 29.3 pg (26.0-34.0); Mean Corpuscular HGB Conc 31.7 g/dL (31.5-36.5); Mean Corpuscular Volume 92 fL (80-100); Mean Platelet Volume 8.9 fL (9.1-12.4); NEUTROPHILS ABSOLUTE AUTO 5.34 K/mm3 (1.96-9.15); NEUTROPHILS PERCENT AUTO 67 % (41-73); Platelet Count 186 K/mm3 (150-400); RDW Coefficient Variation 14.2 % (11.7-14.2); RDW Standard Deviation 48.3 fL (35.1-46.3); Red Blood Cell Count 3.86 M/mm3 (4.30-5.90)
[2019-08-12 14:08] LABS: CPK Creatine Kinase 21 U/L (39-308)
[2019-08-12 14:14] LABS: Alanine Aminotransfer (ALT/SGP 18 U/L (12-78); Albumin, Blood 2.9 g/dL (3.4-5.0); Albumin/Globulin Ratio 0.7 (0.8-1.8); Alk Phos 109 U/L (50-136); Anion Gap 9 mmol/L (6-16); Aspartate Aminotrans (AST/SGOT 16 U/L (12-37); Bilirubin, Total 0.8 mg/dL (0.1-1.0); Blood Urea Nitrogen 10 mg/dL (8-24); CO2, Blood 26 mmol/L (21-32); Calcium, Blood 9.2 mg/dL (8.5-10.1); Chloride, Blood 100 mmol/L (98-108); Creatine Kinase MB <1.0 ng/mL (0.0-3.6); Creatine Kinase MB Index Unable to Calculate (0.0-4.0); Creatinine, Blood 0.84 mg/dL (0.60-1.20); Globulin, Blood 3.9 g/dL (2.2-4.0); Glomerular Filtration Rate >60 (60-); Glucose, Blood 138 mg/dL (70-99); Potassium, Blood 3.9 mmol/L (3.5-5.5); Sodium, Blood 135 mmol/L (136-145); Total Protein, Blood 6.8 g/dL (6.4-8.2)
[2019-08-12] MEDS ORDERED: Tizanidine HCl2 MG PO (15:56)
[2019-08-12] MEDS ORDERED: Morphine Sulfat15 MG PO (16:01)
[2019-08-12] MEDS ORDERED: DOCU100 PO (17:06)
[2019-08-12] MEDS ORDERED: Zyrtec10 MG PO (17:08)
[2019-08-12] MEDS ORDERED: THERMOTABS PO (17:09)
--- NOTE | 2019-08-12 20:15 | NUR ---
SUMMARY PT ADMITTED TO THE FLOOR FROM THE ER, HE IS ALERT, SLEEPY AND RATING HIS PAIN AN 8/10. PT IS ACCOMPANIED BY HIS . VSS, CONTINUOUS BIOX HAS BEEN PLACED. BED HAS BEEN REPLACED & AND AN EGG CRATE PAD HAS BEEN ADDED FOR PT'S COMFORT. DARK GREEN EMESIS NOTED SHORTLY AFTER ARRIVAL. ZOFRAN WAS GIVEN. PAIN MANAGED PER EMAR WITH PO MEDICATION ONCE NAUSEA STABLIZED. PT ENCOURAGED TO EAT CRACKERS WITH PO MEDS TO PREVENT MORE PROBLEMS. NS INFUSING @ 100 ML/HR. REPORT HAS BEEN GIVEN TO DORCAS RN. CALL LIGHT IS IN REACH. PT RESTING AT THIS TIME.
--- NOTE | 2019-08-12 21:27 | NUR ---
PATIENT WAS VERY UNCOMFORTABLE ON HIS BED, SWITCHED FOR A DIFFERENT BED WITH EGGCRATE. PATIENT STATES THAT THE NEW BED IS MUCH BETTER AND HAS HELPED TO DECREASE HIS PAIN. HE IS ABLE TO REPOSITION SELF. TAKING PO FLUIDS, NO NAUSEA. PAIN ON FIRST MEETING PATIENT WAS A 10 AND IS NOW AT A 5/10.
--- NOTE | 2019-08-13 04:37 | NUR ---
PATIENT WAS ABLE TO SLEEP THROUGHOUT THE NIGHT. UP TO THE BR WITH ASSIST. IV IS NOW SL. C/O 12/24 PAIN. MILD HEADACHE. NO REQUEST FOR PAIN MEDICATION.
[2019-08-13 05:05] LABS: Anion Gap 6 mmol/L (6-16); Blood Urea Nitrogen 10 mg/dL (8-24); Bun/Creatinine Ratio 12.3 (12.0-20.0); CO2, Blood 27 mmol/L (21-32); Calcium, Blood 8.2 mg/dL (8.5-10.1); Chloride, Blood 102 mmol/L (98-108); Creatinine, Blood 0.81 mg/dL (0.60-1.20); Glomerular Filtration Rate >60 (60-); Glucose, Blood 138 mg/dL (70-99); Magnesium, Blood 2.1 mg/dL (1.6-2.4); Potassium, Blood 3.8 mmol/L (3.5-5.5); Sodium, Blood 135 mmol/L (136-145)
--- NOTE | 2019-08-13 08:47 | NUR ---
offered kpad for comfort pt declined, stating did not work at home.
--- NOTE | 2019-08-13 10:41 | NUR ---
DR. BETH IN TO SEE PT AT THIS TIME; DISCUSSED PAIN CONTROL. PLAN TO STAY ANOTHER 24HRS.
--- NOTE | 2019-08-13 12:30 | NUR ---
PREVIOUS FENTANYL PATCH REMOVED AND WASTED. NEW FENTANYL PATCH PLACED PER ORDER.
--- NOTE | 2019-08-13 14:12 | NUR ---
SPIRITUAL CARE IN TO BE WITH PATIENT/FAMILY AT THIS TIME.
--- NOTE | 2019-08-13 15:13 | NUR ---
Initial Visit: Palliative Care Consult for Symptom Management. Pt is A&O and reports 3/10 pain at the beginning of visit. Pt reports mild but manageable anxiety. He denies nausea and dysnea at this time. Engaged in therapeutic discussion regarding pain management. Pt reports current regimen is managing pain. Educated on the importance once home to journal times he is requiring breakthrough pain medications and the importance of communicating with Dr Hunt regarding pain. Pt's present during visit and received V/U from both Pt and . Discussed the need for support as the disease process takes its coarse. Pt reports adequate support between his , son, duaghter, sibblings, and friends. Left Pt's contact information for palliative care and instructed to call with any questions or concerns. Palliative Care will remain available for symptom management.
--- NOTE | 2019-08-13 16:31 | NUR ---
Spiritual CAre inital note: Wil was hesitiant at first, but allowed me to pray when I offered. Both he and his spouse became very tearful during prayer, but did not want to talk. I suspect both would benefit from student loan counselor and spiritual direction. I will continue to attempt these in coming days.
--- NOTE | 2019-08-13 18:38 | NUR ---
SHIFT SUMMARY PT A&O WITH VSS T/O SHIFT. PAIN MANAGEMENT DIFFICULT; CALLED DOCTOR THIS EVENING AND OBTAINED NEW ORDERS. PT REFUSED IMAGING, WILL ATTEMPT TOMORROW. TOLERATING DIET AND AMBULATING IND TO BATHROOM. FAMILY AT BEDSIDE.
--- NOTE | 2019-08-14 05:15 | NUR ---
shift summary: vss, no acute changes, pt reports feeling "sleepy", that he has not been sleeping well related to pain. Pt reports better pain control this evening. pt awakens easily when roused, appears to be sleeping on nurse rounding. continuous bioxx consistently >92% on rounding. pt requests to be left to sleep.
--- NOTE | 2019-08-14 11:10 | NUR ---
DR. LIZARRAGA IN TO SEE PT THIS MORNING. NEW ORDERS OBTAINED. PLAN FOR DISCHARGE TODAY
--- NOTE | 2019-08-14 13:48 | NUR ---
Pt visit this afternoon. Pt is sitting on edge of bed upon arrival with son attending to his needs. Pt is painful as evidenced by non verbal indicators and asked to rate pain 1/10. Pt states "20". Instructed Pt on deep breathing. Called Dr Ya and placed one time order of Ativan 0.5mg IV to help with the Pt's anxiety per V/O from Dr Ya. Dr Ya arrives to Pt's room and educates family on diease and prognosis. Hospice and comfort care was discussed. This RN remained behind to answer questions. Family tearful and this RN offered emotional support. Pt's daughter arrives and this RN escorted family to ED Palliative Care office and discussed options including comfort care and hospice. Educated on comfort care and hospice with V/U made by family. Family report they will discuss options with Pt. Palliative Care will remain available.
--- NOTE | 2019-08-14 17:49 | NUR ---
SHIFT SUMMARY PT SLEEPING HEAVILY NOW; SATS AND RESPIRATIONS STABLE. PAIN MANAGED PER EMAR AT THIS TIME. XRAY COMPLETED TODAY. PLAN TO STAY THIS EVENING R/T PAIN MANAGEMENT. POOR PO INTAKE THIS AFTERNOON R/T PAIN AND SLEEPINESS T/O SHIFT. FAMILY AT BEDSIDE T/O SHIFT AND CALL LIGHT WITHIN REACH.
--- NOTE | 2019-08-15 07:39 | NUR ---
SUMMARY HOSPITALIST NOTIFIED THIS AM THAT PT IS UNABLE TO URINATE. BLADDER SCAN WAS DONE 650 ML WAS SEEN ON THE SCANNER. [facility] CATH WAS ORDERED. 16 FR CATH WAS ORDERED AND INSERTED. HOSPITALIST WAS ALSO INOTIFIED OF THE DECLINE IN PT'S MENTAL STATUS & RIGHT ARM WEAKNESS. PT IS UNABLE TO ANSWER QUESTIONS APPROPRIATELY, HE IS NOT ALERT BUT WILL RESPOND WITH STIMULATION. PT'S FAMILY STATES THAT HE WAS ALERT AROUND NOON YESTERDAY. PT IS C/O SEVERE PAIN TO HIS R ARM. HE IS UNABLE TO GRASP OR USE IT AT ALL. EDEMA NOTED, ARM IS ELEVATED ON PILLOW. PAIN MEDICATED PER EMAR WITH PO MEDS, NO IV MEDICATION REQUIRED. BED ALARM IS ON FOR SAFETY. FAMILY IS AT THE BEDSIDE THIS AM. THEY HAVE BEEN INFORMED OF HOW THE NIGHT HAS GONE. REPORT HAS BEEN GIVEN TO DAY RN. CALL LIGHT IN REACH.
--- NOTE | 2019-08-15 09:18 | NUR ---
Pt visit this AM. Pt resting in bed with his eyes closed. Pt opens his eyes with verbal stimuli but still appears somnolent. Pt denies pain at this time. Family at bedside and discussion was made outside of Pt's room. Dr Ya also present. Dr Ya discusses case and plan with family. This RN remained behind to answer questions. reports she is leaning towards comfort care but will wait until Dr Hunt contacts Dr Ya. No other concerns reported at this time. Spoke with bedside nurse Tete and discussed case. Palliative Care will remain available
--- NOTE | 2019-08-15 09:58 | NUR ---
0730 OPENS EYES TO VERBAL STIMULI, DOES NOT ANSWER QUESTIONS OR FOLLOW COMMANDS. SAYS "OUCH" WHEN I MOVED HIS RIGHT ARM. PATIENT CLOSES EYES AND HAS EVEN UNLABORED RESPIRATIONS WHEN NOT BEING STIMULATED TO STAY AWAKE. PATIENTS AND SON HERE TO VISIT. FLUE CLEANER RN SPEAKING WITH PATIENTS AND SON
--- NOTE | 2019-08-15 10:01 | NUR ---
6278 PATIENT IS NOT AWAKE AND ALERT ENOUGH AT THIS TIME TO EAT BREAKFAST OR TAKE ANY MEDS. SPOKE WITH PATIENTS AND SON AND THEY AGREE WITH PLAN TO HOLD MEDS. FAMILY FEELS PAIN IS WELL CONTROLLED AT THIS TIME
--- NOTE | 2019-08-15 17:52 | NUR ---
SUMMARY PATIENT AWAKENS TO VERBAL STIMULI, PATIENT TAKING SMALL SIPS OF FLUID. PATIENT DOES NOT ANSWER QUESTIONS, FOLLOWS SIMPLE COMMANDS WHEN ASKED TO TAKE A DRINK AND SQUEEZE MY FINGERS. PATIENT MEDICATED THIS AFTERNOON FOR PAIN WHEN RESTLESS- PATIENT CALMER AND SLEEPING AFTER MEDICATED. PATIENT WINCES AND CRIES OUT WHEN TOUCHED ON ANY PLACE OF HIS BODY. FAMILY MEMBERS HERE MOST OF THE DAY AND ATTENTIVE TO PATIENT
--- NOTE | 2019-08-15 18:22 | NUR ---
Spiritual Care routine visit: I met with pt's spouse, Monica, several times this shift. She was tearful and responded well to emotional affirmation and gentle marriage counselor. This evening, more family arrived. They have been told by physician comfort care/hospice is appropriate now. Family is processing this news tonight and will most likely make decision tomorrow. Pt has been fairly non-responsive today. He awakens briefly, but when he does he winces. It is hard to tell if this is due to emotional, spiritual, or physical pain. He then goes back into apparent sleep. It is also hard to know how much of physician information today was understood by pt. It is clear, however, that he is not lucid enough to make POC decisions. At least not today. I provided prayer at bedside with Monica this morning and again this evening with gathered family. Family appears to grasp pt is nearing end-of-life. They are appreciaitive of marriage counselor and prayer. I will remain available.
--- NOTE | 2019-08-16 02:52 | NUR ---
Patient turned and repositioned Q2H. Complaints of severe pain when moving, and very agitated; medicated as ordered. Patient has difficulty drinking from straw at times when taking medications. On cont pulse oximetry, saturations >94% on RA. HR Tachy. Edmonds catheter in place, dark david urine. Patient repeatedly stating he needs to pee, educated on function of edmonds catheter. Patient not comprehending education.
--- NOTE | 2019-08-16 12:00 | NUR ---
Pt visit this AM. Pt resting in bed and is somnolent but appears a little more alert. Pt reports pain but unable to give intensity or rating 1/10. PAINAD score 2/10. Spoke with Pt's Monica and son outside Pt's room. Monica reports wanting Pt place on comfort care and then home with [facility] tomorrow. She prefers the word "Hospice" not be mentioned in front of Pt and would prefers the term "Comfort Care". She state Pt becomes anxious with ther word hospice. Palliative Care Scrap Collector also present offering emotional and spiritual support to family. No other concerns reported at this time. Spoke with lan Perez and discussed case. Ana will plan to visit with family and discuss discharge plan. Palliative Care will remain available.
--- NOTE | 2019-08-16 16:13 | NUR ---
Spiritual Care routine visit: At family request, I provided prayer and family blessing at bedside. They were appreciaitve of spiritual and emotional support. Spouse, son, dtr, and 2 brothers present. All tearful throughout prayer, but very appropriate and loving. Family appears in acceptance of Lamberto's path. Lamberto opened eyes to voice, winced, and would quickly fall back to sleep. Family expressed appreciation for compassionate care by [facility] staff. [employer] will remain available.
--- NOTE | 2019-08-16 19:23 | NUR ---
SUMMARY PT WAS TRANSITIONED TO COMFORT CARE TODAY PER FAMILY REQUEST. PO PAIN MEDICATION CHANGED TO ROXINOL. PT APPEARS TO BE COMFORTABLE. FAMILY HAS BEEN AT THE BEDSIDE, EDUCATION AND SUPPORT PROVIDED REGARDING WHAT TO EXPECT AND THE TRANSITION OF CARE TO HOSPICE. CALL LIGHT IN REACH. REPORT GIVEN TO DORCAS TADEO.
--- NOTE | 2019-08-17 03:55 | NUR ---
Pt resting comfortably. Pain medication given as ordered. Turned and repositioned Q2H. Spoke with son on the phone pertaining to patient's status. IV to R AC removed, not patent.
--- NOTE | 2019-08-17 09:43 | NUR ---
hospice: DOCTOR AND DANCE INSTRUCTOR IN TO SPEAK TO PATIENT ABOUT TRANSFER TO HOSPICE CARE TODAY. PLAN ON DISCHARGE LATER THIS MORNING.
[2019-08-17] MEDS ORDERED: LORA.5 PO (10:59)
[2019-08-17] MEDS ORDERED: ROXICODONE5 MG PO (11:02)
--- NOTE | 2019-08-17 11:19 | NUR ---
DISCHARGE: PT DC TO HOME ON HOSPICE AT THIS TIME. PT MEDICATED FOR PAIN PRIOR TO TRANSFER FOR PAIN WITH MOVEMENT. CALLED TO [facility] AND DC MED REC AND INSTRUCTIONS SENT WITH PATIENT.
== END 2019-08-17 11:17 | disposition hospice, home (50) | DRG 948 ==
LOC: ER 11:42 → ERHOLD 11:43 → SURS 11:43
PROVIDERS: Emergency Medicine; Nurse Practitioner Acute Care; ADMIT Hospitalist
DX: G89.3 Neoplasm related pain (acute) (chronic) (principal); C79.51 Secondary malignant neoplasm of bone; C64.1 Malignant neoplasm of right kidney, except renal pelvis; C64.9 Malignant neoplasm of unspecified kidney, except renal pelvis; E87.1 Hypo-osmolality and hyponatremia; E11.9 Type 2 diabetes mellitus without complications; Z51.5 Encounter for palliative care; K21.9 Gastro-esophageal reflux disease without esophagitis; Z66 Do not resuscitate; R33.9 Retention of urine, unspecified; H57.12 Ocular pain, left eye; Z79.899 Other long term (current) drug therapy; Z79.84 Long term (current) use of oral hypoglycemic drugs; Z79.891 Long term (current) use of opiate analgesic
CPT/HCPCS: 36415; 51702; 70450; 71046; 72157; 73030; 80048; 80053; 82550; 82553; 82947; 83735; 85025; 94762; 96361; 96372; 96374; 96374-59; 96375; 96376; 96376-59; 99284-25; 99285-25; A9270; A9270-GY; A9577; G0378; J1170; J1650; J2060; J2405; J3010; J7030; J7120